=== PATIENT | male | born 1995 | race Caucasian/White ===

== ENCOUNTER 2020-10-09 07:16 | Emergency (ER) | payer SELFPAY ==
[2020-10-09] MEDS ORDERED: Colchicine 0.6 MG Tab PO ONE (07:40)
[2020-10-09] MEDS ORDERED: predniSONE 20 MG Tab PO ONE (07:41)
[2020-10-09] MEDS ORDERED: Acetaminophen/oxyCODONE 325-5 MG Tab PO ONE (07:41)
[2020-10-09] MEDS ORDERED: Ondansetron 4 MG Tab.DIS PO ONE (07:42)
--- NOTE | 2020-10-09 07:50 | EDM.PDOC ---
ED HPI GENERAL MEDICAL PROBLEM - General Chief Complaint: Lower Extremity Injury/Pain Stated Complaint: LT FOOT SWOLLEN Time Seen by Provider: 10/09/20 07:30 Source of Information: Reports: Patient History Limitations: Reports: No Limitations - History of Present Illness INITIAL COMMENTS - FREE TEXT/NARRATIVE: 24-year-old male presents to the ED complaining of severe pain left ankle. Patient does have a history of gout. He states initially a week ago he started to have pain in his left great toe primarily the first MCP TP joint and then after a few days it spread to the right great toe again involving the MTP joint and over the last 2 days spread to the left ankle. Patient works nights and is just getting off shift. Cannot hardly put any weight on his left foot at all. He is supposed to be often traveling back to [place] today. Patient does not know if he is ever had his uric acid tested in his blood. He denies any recent alcohol use. Onset: Sudden Onset Date: 10/08/20 Duration: Hour(s):, Getting Worse (Left ankle pain over the last 24 hours) Location: Reports: Lower Extremity, Left (Left ankle pain.) Quality: Reports: Ache, Throbbing Severity: Severe Improves with: Reports: None (He did take some Motrin last evening about 1:30 in the morning with minimal relief.) Worsens with: Reports: Movement Context: Denies: Activity, Exercise (Movement of the ankle or attempt to weight- bear.), Lifting, Sick Contact, Trauma, Other Associated Symptoms: Reports: No Other Symptoms. Denies: Fever/Chills, Headaches, Loss of Appetite, Malaise, Nausea/Vomiting, Rash, Seizure, Shortness of Breath, Syncope Treatments [place]: Reports: NSAIDS (Motrin.) left foot Pain Score (Numeric/FACES): 5 - Related Data Allergies Allergy/AdvReac Type Severity Reaction Status Date / Time No Known Allergies Allergy Verified 10/09/20 07:31 Home Meds: Home Meds Colchicine 0.6 mg PO Q1H #2 capsule 10/09/20 [Rx] Diclofenac Sodium [Voltaren] 75 mg PO BIDMEALS #16 tab.cr 10/09/20 [Rx] oxyCODONE HCl/Acetaminophen [Percocet 5-325 mg Tablet] 1 - 2 each PO Q4H PRN #14 tablet 10/09/20 [Rx] predniSONE [Prednisone] 20 mg PO BID #10 tablet 10/09/20 [Rx] Past Medical History Musculoskeletal History: Reports: Gout Social & Family History - Tobacco Use Tobacco Use Status *Q: Never Tobacco User - Recreational Drug Use Recreational Drug Use: No - Living Situation & Occupation Living situation: Reports: Single Occupation: Employed Review of Systems - Review of Systems Review Of Systems: See Below Constitutional: Reports: No Symptoms Eyes: Reports: No Symptoms Ears: Reports: No Symptoms Nose: Reports: No Symptoms Mouth/Throat: Reports: No Symptoms Respiratory: Reports: No Symptoms Cardiovascular: Reports: No Symptoms GI/Abdominal: Reports: No Symptoms Genitourinary: Reports: No Symptoms Musculoskeletal: Reports: Joint Pain (Severe joint pain left ankle at present. Previous pain involving both first MTP joints left and) Skin: Reports: No Symptoms ( right great toes off and on over the last week) Neurological: Reports: No Symptoms Psychiatric: Reports: No Symptoms ED EXAM, GENERAL - Physical Exam Exam: See Below Exam Limited By: No Limitations General Appearance: Alert, WD/WN, No Apparent Distress, Other Throat/Mouth: Normal Inspection, Normal Lips, Normal Teeth, Normal Oropharynx Head: Atraumatic, Normocephalic Neck: Normal Inspection, Supple, Non-Tender, Full Range of Motion. No: Lymphadenopathy (L), Lymphadenopathy (R) Respiratory/Chest: No Respiratory Distress, Lungs Clear, Normal Breath Sounds, No Accessory Muscle Use Cardiovascular: Normal Peripheral Pulses, Regular Rate, Rhythm, No Edema, No Gallop, No Murmur, No Rub Peripheral Pulses: 3+: Posterior Tibial (L), Posterior Tibial (R), Dorsalis Pedis (L), Dorsalis Pedis (R) GI/Abdominal: Normal Bowel Sounds, Non-Tender, No Organomegaly, No Distention Extremities: Other (Examination reveals mildly increased warmth coming from his left ankle joint with evidence of swelling. He has minimal ability to dorsiflex or plantarflex due to pain. No increased warmth coming out of either MTP joint at this time.) Neurological: Alert, Oriented, CN II-XII Intact, Normal Cognition. No: Normal Gait (Patient cannot weight-bear on his left foot.) Psychiatric: Normal Affect, Normal Mood Skin Exam: Warm, Dry, Intact, Normal Color, No Rash Course - Vital Signs Last Recorded V/S: Last Vital Signs Temp 36.1 C 10/09/20 07:27 Pulse 85 10/09/20 07:27 Resp 18 10/09/20 07:27 BP 140/78 10/09/20 07:27 Pulse Ox 97 10/09/20 07:27 - Orders/Labs/Meds Meds: Medications Discontinued Medications Generic Name Dose Route Start Last Admin Trade Name Adriana PRN Reason Stop Dose Admin Colchicine 0.6 mg 10/09/20 07:40 10/09/20 07:49 Colchicine 0.6 Mg Tab PO 10/09/20 07:41 0.6 mg ONETIME ONE Administration Ondansetron HCl 4 mg 10/09/20 07:42 10/09/20 07:49 Ondansetron 4 Mg Tab.Dis PO 10/09/20 07:43 4 mg ONETIME ONE Administration Oxycodone/Acetaminophen 1 tab 10/09/20 07:41 10/09/20 07:49 Acetaminophen/Oxycodone 325-5 Mg Tab PO 10/09/20 07:42 1 tab ONETIME ONE Administration Prednisone 30 mg 10/09/20 07:41 10/09/20 07:49 Prednisone 20 Mg Tab PO 10/09/20 07:42 30 mg ONETIME ONE Administration - Radiology Interpretation Free Text/Narrative:: 24-year-old male presents to the ED with an acute gout attack involving his left ankle joint. Patient has had pain in both MTP joints of his great toes off and on over the last week. He has been taking Motrin as needed. Patient has a past history of gout attack. He has never had his uric acid level checked. He denies any recent alcohol use. Examination reveals pain with dorsiflexion plantarflexion left ankle. Increased warmth and swelling of the left ankle compatible with a gout attack. No known trauma. Triple be prednisone 30 mg p.o. now. Then he will take 20 mg twice daily with supper and breakfast for the next 5 days. Voltaren 75 mg twice daily with breakfast and supper for 8 days. Percocet tabs 5/325 mg strength one or two every 4-6 hours necessary for pain relief x12 tablets. Colchicine 0.6 mg tablet one now and then one at 9 o'clock and 10 o'clock this morning to relieve pain. He has plans to travel to [place]. We discussed options and he will take the rest of the day off and plan on traveling tomorrow by vehicle. Advised he cannot take the pain pills and drive. Departure - Departure Time of Disposition: 07:43 Disposition: Home, Self-Care 01 Condition: Fair Clinical Impression: Gout - Discharge Information *PRESCRIPTION DRUG MONITORING PROGRAM REVIEWED*: Not Applicable *COPY OF PRESCRIPTION DRUG MONITORING REPORT IN PATIENT DEMOND: Not Applicable Prescriptions: Colchicine 0.6 mg PO Q1H #2 capsule oxyCODONE HCl/Acetaminophen [Percocet 5-325 mg Tablet] 1 - 2 each PO Q4H PRN #14 tablet PRN Reason: gout attack. predniSONE [Prednisone] 20 mg PO BID #10 tablet Diclofenac Sodium [Voltaren] 75 mg PO BIDMEALS #16 tab.cr Referrals: PCP,None [Primary Care Provider] - Forms: ED Department Discharge Additional Instructions: Evaluation in the ED today with an acute gout attack involving the Lt ankle. Treatment was started in the ED with Prednisone 30mg by mouth. 20 mg tablet should be taken around 1800hrs tonight . Colchicine 0.6mg tablet. This will need to be repeated at 0900hrs and again at 1000 hrs this am. 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 Pain medication to be Percocet 5/325mg tabs --1-2 tabs every 4hrs as needed for pain relief . Should be 70-80 % better in 24hrs and 90% better in 48hrs with above treatment. Advise having your blood uricacid level tested at some point in the future when not experiencing a gout attack. Sepsis Event Note (ED) - Evaluation Sepsis Screening Result: No Definite Risk - Focused Exam Vital Signs: Vital Signs Temp Pulse Resp BP Pulse Ox 10/09/20 07:27 36.1 C 85 18 140/78 97
== END 2020-10-09 08:07 | disposition home or self-care (01) ==
LOC: JD.ED 07:16
DX: M10.9 Gout, unspecified (principal)
CPT/HCPCS: 99283; A9270; J7512